=== PATIENT | male | born 1975 | race Caucasian/White ===

== ENCOUNTER 2016-07-05 23:26 | Emergency (ER) | payer BC, OTHER ==
[2016-07-05 23:35] VITALS: BP 138/84; PULSE 82; TEMP 97.9; BMI 30.2
--- NOTE | 2016-07-05 23:54 | PDOC ---
History of Present Illness - General Chief Complaint: Headache Stated Complaint: HEADACHE Time Seen by Provider: 07/05/16 23:35 History Source: Patient Exam Limitations: No Limitations - History of Present Illness Initial Comments: 07/06/16 00:25 This is a 40-year-old male who comes in complaining of a headache persistent 1 week. Headache is constant and bitemporal with radiation for the back of his head. Patient denies any fevers or chills. Patient denies any nausea vomiting. Patient denies any history of similar symptoms in the past. Patient denies any neurological complaints. Patient does complain of some mild photophobia with the headache. Patient is taken 2 Motrin for the headache once a day in the past without relief of symptoms. PAST MEDICAL HISTORY: no significant history PAST SURGICAL HISTORY: no significant history FAMILY HISTORY: no pertinant history SOCIAL HISTORY: Pt lives with family and is employed. MEDICATIONS: reviewed ALLERGIES: As per nursing notes Review of Systems General: No fevers or chills, no weakness, no weight loss HEENT:+ headache No change in vision. No sore throat,. No ear pain CardioVascular: No chest pain or shortness of breath Respiratory:No cough, or wheezing. Gastrointestinal: no nausea, vomitting, diarrhea or constipation, No rectal bleeding Genitourinary: No dysuria, hematuria, or frequency Musculoskeletal: No joint or muscle pain or swelling Neurologic: + headache, no vertigo, dizziness or loss of consciousness Psychiatric: nor depression Skin: No rashes or easy bruising Endocrine: no increased thirst or abnormal weight change Allergic: no skin or latex allergy All other systems reviewed and normal Exam: General: Well-nourished well-developed individual, no acute distress HEENT: Throat: Normal, tonsils normal, no erythema or exudate Neck: Supple, no meningeal signs, no lymphadenopathy Eyes::Pupils equal reactive and round, extraocular motion intact Chest: Nontender to palpation Cardiac: S1-S2 normal, regular rate and rhythm, no murmurs rubs or gallops Respiratory: Lungs clear to auscultation bilateral Abdomen: Soft, nondistended, normal bowel sounds, nontender to palpation diffusely Extremities: Warm, dry, no cyanosis, clubbing, or edema Skin: No rashes Neuro: Alert and oriented x3, nonfocal exam, grossly intact, normal gait Psych: Normal mood and affect 07/06/16 01:[address] T no acute pathology Assessment and plan: This is a 40-year-old male with tension-type headache symptoms who comes in complaining of a headache constant times approximately one week. Patient has not been taking anything for the headache other than an occasional ibuprofen. Patient given Toradol and Reglan here in the emergency room with improvement of his symptoms. Patient referred to a neurologist for follow-up. Patient given prescription for Naprosyn and Reglan that he can continue to take for the headache. Past History - Past Medical History Allergies/Adverse Reactions: Allergies Allergy/AdvReac Type Severity Reaction Status Date / Time No Known Allergies Allergy Unverified 07/05/16 23:31 Home Medications: Ambulatory Orders NK [No Known Home Medication] 07/05/16 Other medical history: DENIES - Psycho/Social/Smoking Cessation Hx Anxiety: No Suicidal Ideation: No Smoking History: Current every day smoker Number of Cigarettes Smoked Daily: 20 Information on smoking cessation initiated: Yes 'Breaking Loose' booklet given: 07/05/16 *Physical Exam - Vital Signs Last Vital Signs Temp Pulse Resp BP Pulse Ox 97.9 F 82 18 138/84 100 07/05/16 23:31 07/05/16 23:31 07/05/16 23:31 07/05/16 23:31 07/05/16 23:31 *DC/Admit/Observation/Transfer Diagnosis at time of Disposition: Headache Qualifiers: Headache type: tension-type Headache chronicity pattern: acute headache Intractability: not intractable Qualified Code(s): G44.209 - Tension-type headache, unspecified, not intractable - Discharge Dispostion Disposition: HOME Condition at time of disposition: Stable - Patient Instructions Printed Discharge Instructions: Tension Headache Additional Instructions: Take Naprosyn 1 tablet as often as twice a day as needed for headache. If headache does not resolve by Friday it is important that you follow-up with your primary care Dr. on Friday Return to the emergency department immediately with ANY new, persistent or worsening symptoms. Continue any medications as previously prescribed by your physician. You should follow up with your primary doctor as soon as possible regarding today's emergency department visit. . Please make sure your doctor reviews the results of your emergency evaluation. Thank you for coming to the Emergency Department today for your care. It was a pleasure to see you today. Please note that your evaluation is INCOMPLETE until you follow-up with your doctor.
[2016-07-06] MEDS ORDERED: ACETAMINOPHEN 500 MG TABLET (FP) PO ONE (00:15)
[2016-07-06] MEDS ORDERED: ACETAMINOPHEN 325 MG TABLET (FP) ONE (00:20)
[2016-07-06] MEDS ORDERED: KETOROLAC TROMETHAMINE 60 MG/2 ML VIAL IM ONE (01:01)
[2016-07-06] MEDS ORDERED: METOCLOPRAMIDE HCL INJECTION 10 MG/2 ML VIAL IM ONE (01:01)
[2016-07-06] MEDS ORDERED: KETOROLAC TROMETHAMINE 60 MG/2 ML VIAL ONE (01:16)
== END 2016-07-06 01:25 | disposition home or self-care (01) ==
LOC: FER 23:26
PROC: 3E0233Z Introduction of Anti-inflammatory into Muscle, Percutaneous Approach (ICD-10-PCS; principal; 2016-07-05)
PROC: 3E023GC Introduction of Other Therapeutic Substance into Muscle, Percutaneous Approach (ICD-10-PCS; 2016-07-05)
DX: G44.209 Tension-type headache, unspecified, not intractable (principal); F17.210 Nicotine dependence, cigarettes, uncomplicated
CPT/HCPCS: 70450-TC; 99282-25

== ENCOUNTER 2022-04-20 12:59 | Emergency (ER) | payer BC ==
[2022-04-20 13:12] VITALS: BP 125/81; PULSE 86; RESP 16; TEMP 98.9; BMI 26.6
[2022-04-20] MEDS ORDERED: IBUPROFEN 600 MG TABLET (FP) PO ONE ×2 (13:27→14:00)
== END 2022-04-20 14:29 | disposition home or self-care (01) ==
LOC: FER 12:59
DX: R05.1 Acute cough (principal); H66.93 Otitis media, unspecified, bilateral; Z71.6 Tobacco abuse counseling
CPT/HCPCS: 0241U-QW; 71046-TC-FY; 99284-25